=== PATIENT | female | born 1955 | race Caucasian/White ===

== ENCOUNTER 2022-03-06 19:52 | Emergency (ER) | payer BC, SELFPAY ==
--- NOTE | 2022-03-06 19:54 | ED.HEATRA ---
HPI - Head Injury General Stated complaint: lac of head Time Seen by Provider: 03/06/22 20:02 Source: patient Mode of arrival: ambulatory Limitations: no limitations History of Present Illness HPI Narrative: 66-year-old female presents with concern for laceration to the back of her head. She reports just prior to arrival she fell and hit the back of her head on the stair rail. She denies any loss of consciousness. She denies headache, vomiting. She denies weakness in any extremity, vision changes. Complaint: head injury Related Data Home Medications Medication Instructions Recorded Confirmed rosuvastatin 10 mg tablet mg 03/06/22 Allergies Allergy/AdvReac Type Severity Reaction Status Date / Time Sulfa (Sulfonamide Allergy Unknown Unknown Verified 03/06/22 19:59 Antibiotics) Review of Systems Review of Systems: CONSTITUTIONAL: Denies malaise, chills, sweats, or fever. EYES: Denies visual changes CARDIOVASCULAR: Denies chest pain, palpitations, or edema. RESPIRATORY: Denies cough or dyspnea. GASTROINTESTINAL: Denies nausea, vomiting SKIN: Reports laceration to the back of her head MUSCULOSKELETAL: Denies back pain, joint pain, or myalgia. NEUROLOGIC: Denies numbness, weakness, or headache. Denies loss of consciousness All systems reviewed & are unremarkable except as noted in HPI and below PMFSH Comments At time of signature, agree with nursing past medical, surgical, social and family history. There is no relevant family history pertinent to the presenting complaint Exam Narrative: GENERAL: Well-appearing, well-nourished, and in no acute distress. HEAD: Normocephalic, atraumatic. EYES: PERRLA, sclera clear, and EOMI. No nystagmus. ENT: Nares clear, no rhinorrhea or epistaxis. Mucous membranes moist. NECK: Supple. CHEST: No respiratory distress. Speaks in full sentences. HEART: Regular rate and rhythm. No murmur heard. SKIN: Warm, dry. 1 cm laceration into the subcutaneous tissue noted to the posterior scalp without surrounding erythema,, induration. NEURO: Alert and oriented x3. No focal deficits. Cranial nerves II through XII grossly intact PSYCH: Normal mood and affect Course Course Emergency Course: Patient is aware of diagnosis, understands and agrees to treatment plan. Anticipatory guidance given. Patient agrees to follow-up as directed and is aware of reasons to seek care at the emergency department. Portions of this record may have been created with voice recognition software Level of Care: Express Care Visit Vital Signs Vital signs: Reviewed. Procedures Laceration Laceration 1: Date: 03/06/22 Time: 20:04 Site: scalp Size (cm): 1 Description: linear Depth: simple, single layer ====== Skin Level ====== Skin layer closed with: clemente Number of sutures: 1 ====== Subcutaneous Layer ====== ====== Muscle Layer ====== ====== Tendon Layer ====== MDM - Head Injury MDM Narrative Medical decision making narrative: CCHR score: Signs of open or depressed skull fracture: No Beltrán sign/raccoon eyes: No 2 or more episodes of vomiting: No Age 65 years +: Yes Amnesia for events occurring 30 minutes prior to trauma: No Dangerous mechanism of injury (pedestrian struck by motor vehicle, occupant ejected from motor vehicle, fall from >3 feet or >5 stairs): No Exam findings show no acute concerns; patient is alert and oriented with normal neurological exam. CHR score cannot rule out head injury due to patient's age. This was discussed with patient, need for possible CT scan was discussed with patient, patient offered transfer to emergency department for further evaluation. Patient refuses transfer to emergency department. Patient given reasons to go to the emergency department after symptoms change or worsen. Wound explored for foreign body and copious irrigation provided with no evidence of FB. Discussed the p
[2022-03-06 19:58] VITALS: BP 176/80; PULSE 93; RESP 16; TEMP 36.8; O2SAT 98
== END 2022-03-06 20:19 | disposition home or self-care (01) ==
PROVIDERS: Emergency Provider Nurse Practitioner
DX: S01.01XA Laceration without foreign body of scalp, initial encounter (principal); W19.XXXA Unspecified fall, initial encounter; E78.00 Pure hypercholesterolemia, unspecified
CPT/HCPCS: 12001; 99212; G0463

== ENCOUNTER 2022-03-16 17:12 | Emergency (ER) | payer BC, SELFPAY ==
[2022-03-16 17:20] VITALS: BP 154/73; PULSE 69; RESP 16; TEMP 36.7; O2SAT 99
--- NOTE | 2022-03-16 17:29 | ED.SKABFB ---
HPI - Skin/Abscess/Foreign Bdy General Chief complaint: Skin/Abscess/Foreign Body Stated complaint: staple removal Time Seen by Provider: 03/16/22 17:29 Source: patient Mode of arrival: ambulatory Limitations: no limitations History of Present Illness HPI narrative: To have 1 staple removed from the back of her head. Staple was placed 10 days ago at this site. She denies complications. Related Data Home Medications Medication Instructions Recorded Confirmed rosuvastatin 10 mg tablet 10 mg PO DAILY 03/06/22 03/16/22 Allergies Allergy/AdvReac Type Severity Reaction Status Date / Time Sulfa (Sulfonamide Allergy Unknown Unknown Verified 03/16/22 17:22 Antibiotics) Review of Systems Review of Systems: CONSTITUTIONAL: Denies fever, chills EYES: Denies visual changes CARDIOVASCULAR: Denies chest pain GASTROINTESTINAL: Denies abdominal pain, nausea, vomiting, or diarrhea. SKIN: Reports staple in scalp MUSCULOSKELETAL: Denies back pain, joint pain, or myalgia. NEUROLOGIC: Denies headache, numbness, tingling, or weakness. PMFSH Comments At time of signature, I have reviewed and agree with nursing past medical, surgical, social and family history unless otherwise noted. Please see nursing chart for further information. There is no relevant family history pertinent to the presenting complaint Exam Narrative: GENERAL: Well-appearing HEAD: Normocephalic, one staple to mid posterior scalp, no surrounding redness or purulent drainage EYES: conjunctivae clear, and EOMI. RESP: even, unlabored SKIN: Warm, dry. NEURO: Alert and oriented x3. Course Course Emergency Course: Patient is aware of diagnosis, understands and agrees to treatment plan. Anticipatory guidance given. Patient agrees to follow-up as directed and is aware of reasons to seek care at the emergency department. Portions of this record may have been created with voice recognition software Level of Care: Express Care Visit Vital Signs Vital signs: Vital Signs Temperature 98.1 F 03/16/22 17:20 Pulse Rate 69 03/16/22 17:20 Respiratory Rate 16 03/16/22 17:20 Blood Pressure 154/73 H 03/16/22 17:20 Pulse Oximetry 99 03/16/22 17:20 Oxygen Delivery Room Air 03/16/22 17:20 Temperature 98.1 F 03/16/22 17:20 Pulse Rate 69 03/16/22 17:20 Respiratory Rate 16 03/16/22 17:20 Blood Pressure 154/73 H 03/16/22 17:20 Pulse Oximetry 99 03/16/22 17:20 Oxygen Delivery Room Air 03/16/22 17:20 Reviewed Procedures Other Procedure Procedure 1: Other Procedure: one staple removed from scalp without difficulty, no signs of infection MDM - Skin/Abscess/Foreign Bdy MDM Narrative Medical decision making narrative: Instructed patient to go to nearest ER immediately for any concerning symptoms. Differential Diagnosis Differential diagnosis: Likely other (staple removal) Discharge Plan Discharge Clinical Impression: Encounter for staple removal Patient Disposition: Home, Self-Care Condition: Stable Additional Instructions: Keep wound clean and dry Follow up with your primary care provider as needed in 1-2 weeks Go to the ER for worsening symptoms or concerns Prescriptions: No Action rosuvastatin 10 mg tablet 10 mg PO DAILY Follow-up/Referrals: UNKNOWN,DOCTOR [Primary Care Provider] - Time of Disposition: 17:34
== END 2022-03-16 17:39 | disposition home or self-care (01) ==
PROVIDERS: Emergency Provider Nurse Practitioner Family
DX: S01.01XD Laceration without foreign body of scalp, subsequent encounter (principal); X58.XXXD Exposure to other specified factors, subsequent encounter; E78.00 Pure hypercholesterolemia, unspecified
CPT/HCPCS: 99211; G0463

== ENCOUNTER 2025-01-12 19:09 | Emergency (ER) | payer BC, SELFPAY ==
--- NOTE | 2025-01-12 19:14 | ED_ITS ---
HPI - Wound/Laceration General Chief Complaint: Wound/Laceration Stated Complaint: fall/head gash Time Seen by Provider: 01/12/25 19:59 Source: patient, RN notes reviewed and old records reviewed Mode of arrival: ambulatory Limitations: no limitations History of Present Illness HPI narrative: 69-year-old female presents to the [facility] with a laceration to the right side of her head. Patient states that she tripped on a loose board and banged her head a railing. 2 cm lack to the right scalp area Bleeding is controlled Unknown last Tdap Related Data Home Medications ?Medication ?Instructions ?Recorded ?Confirmed ?Last Taken ?Type rosuvastatin 10 mg tablet 10 mg PO DAILY 03/06/2202/23 Unknown History Allergies Allergy/AdvReac Type Severity Reaction Status Date / Time Sulfa (Sulfonamide Allergy Unknown Unknown Verified 01/12/25 19:49 Antibiotics) Review of Systems 2 Review of Systems: All systems reviewed & are unremarkable except as noted in HPI and below Constitutional: Constitutional: Reports no additional constitutional complaints ENT: Reports system reviewed and no additional complaints, except as documented Cardiovascular: Cardiovascular: Reports no additional cardiovascular complaints, Denies chest pain and Denies dyspnea Respiratory: Respiratory: Reports no additional respiratory complaints, Denies chest congestion, Denies cough and Denies dyspnea Musculoskeletal: Musculoskeletal: Reports no additional musculoskeletal complaints Integumentary/Breasts: Skin/Breast: Reports as per HPI PMFSH Comments At the time of my signature, I reviewed and agree with the nursing past medical, surgical, social, and family history. There is no relevant family history pertinent to the patient complaint. Exam 2 Const: General: cooperative, healthy appearing, comfortable, no acute distress, well developed, alert and well nourished Nutritional Appearance: w ell nourished Orientation/consciousness: patient oriented x3 Limitations: no limitations HENMT: Head: normal to inspection Head images: 1. 2.5cm Ears: hearing grossly normal bilaterally and external ears normal Mouth: Yes Normal oral and palatal mucosa present, Yes lip normal, Yes tongue normal and Yes moist mucous membranes Eyes: General: appearance normal, both eyes and all related structures A lignment and Position: alignment normal Neck: Neck: normal visual inspection, full ROM, no lymphadenopathy and no meningeal signs Chest: Chest palpation & inspection: normal inspection of the chest Resp: Effort & Inspection: normal respiratory effort and able to speak in complete sentences Cardio: Rate: regular rate Skin: General skin exam: normal color and no rashes or lesions noted W ounds: wounds noted Other: Laceration right scalp Neuro: General: patient oriented x3, gait normal, moves all extremities and no meningeal signs Cognition (Neuro): normal cognition Speech: normal speech Gait exam (Neuro): Normal gait present Extrem: General: normal to inspection, full ROM, capillary refill normal and normal gait Psych: Appearance: grossly normal and well kempt Mental Status: mental status grossly normal Speech and movement: Normal speech and movement present and Clear speech present Affect: normal affect Attitude: cooperative Course Course Level of Care: Express Care Visit Vital Signs Vital signs: Vital Signs Temperature 97.9 F 01/12/25 19:28 Pulse Rate 88 01/12/25 19:28 Respiratory Rate 18 01/12/25 19:28 Blood Pressure 131/73 01/12/25 19:28 Pulse Oximetry 98 01/12/25 19:28 Oxygen Delivery Room Air 01/12/25 19:28 Temperature 97.9 F 01/12/25 19:28 Pulse Rate 88 01/12/25 19:28 Respiratory Rate 18 01/12/25 19:28 Blood Pressure 131/73 01/12/25 19:28 Pulse Oximetry 98 01/12/25 19:28 Oxygen Delivery Room Air 01/12/25 19:28 Reviewed Procedures Laceration Laceration 1: Date: 01/12/25 Time: 20:00 Site: scalp Side (If applicable): right Size (cm): 2.5 Description: linear Depth: simple, single layer Pre-repair: wound explored and irrigated (100) ====== Skin Level ====== Skin layer closed with: clemente (4) ====== Subcutaneous Layer ====== ====== Muscle Layer ====== ====== Tendon Layer ====== Dressing: Area cleaned with wound cleanser, irrigated with saline. No bleeding noted, 4 clemente placed without issue MDM - Wound/Laceration MDM Narrative Medical decision making narrative: Patient sitting in exam room. Patient is nontoxic, vitals are stable. Patient presents with a laceration to her head, states that she headed on a board were railing on her son's porch. Denies any loss of consciousness. Not on blood thinners. Denies any blurry vision or change in vision. Denies any vomiting. Denies any numbness or tingling in extremities. Remembers the entire incident, no amnesia, no suspicion of a skull fracture Patient is 69 years old, discussed going to the ER which she is declining at this time, just wants it repaired, denies any other signs or symptoms. Patient states that if any symptoms occur that she would go Discharge instructions reviewed with patient, as well as provided in writing per nursing staff. The instructions also include specific and strict return/GO TO THE ER as well as f/u information. All questions have been answered, and the patient deny any further questions with discharge and discharge plan. Some parts of this dictation were generated by voice recognition software and may contain typographical and/or grammatical inaccuracies. Differential Diagnosis Differential diagnosis: Likely laceration, abrasion and avulsion of skin Critical Care Time Critical Care Time Critical Care Time: No Discharge Plan Discharge Clinical Impression: Laceration of scalp, Vaccine for diphtheria-tetanus Patient Disposition: Home Condition: Stable Instructions: Antibiotic Form, Head Laceration (ED) Additional Instructions: Starting tomorrow wash area daily, pat dry pain Take Tylenol as needed for pain Follow-up with primary care provider in about a week to have clemente removed For new or worsening symptoms such as blurry vision, change in vision, vomiting, headache or worsening pain please proceed to the nearest emergency room for further evaluation Patient Language: Telugu Prescriptions: No Action rosuvastatin 10 mg tablet 10 mg PO DAILY Follow-up/Referrals: UNKNOWN,DOCTOR [Primary Care Provider] Time of Disposition: 20:10
--- OUTSIDE RECORDS SUMMARY | 2025-01-12 19:15 | XMS_ITS | Clinical Summary ---
Author Organization [address] Address [facility] [place] [address] Care Team Providers Care Vacuum Tester Cans Name Role Phone Anibal Santos MD Primary Care Provider Allergies No known active allergies Medications aspirin 81 mg enteric coated tablet daily Active cetirizine (ZyrTEC) 10 mg tablet daily Active niacin, inositol niacinate, 400 mg niacin (500 mg) capsule Take by mouth Acti ve multivit with minerals/lutein (MULTIVITAMIN 50 PLUS ORAL) Take by mouth Activ e tirzepatide, weight loss, (Zepbound) 2.5 mg/0.5 mL pen injectorIndicati ons:Wt Loss Mgmt, Pt with BMI 27-29 & Wt-Related Comorbidity Inject 0.5 mL (2.5 mg total) under the skin every 7 days 2 mL 5 Active triamcinolone (KENALOG) 0.1 % cream Apply to affected area 1-2 times daily as needed. 28.4 g 1 5 06/08/19 26 Active phentermine 37.5 mg capsule Take 1 capsule (37.5 mg total) by mouth every morning 60 capsule 5 01/17/20 25 Active rosuvastatin (CRESTOR) 20 mg tablet Take 1 tablet by mouth once daily 90 tablet 3 5 Active Active Problems Problem Noted Date Diagnosed Date Obesity (BMI 30-39.9) 10/18/2024 Assessment & Plan (10/18/2024 1:01 PM CDT): Congratulated on weight loss thus far. Refill phentermine. She can look into obtaining tirzepatide through the [employer] arizmendi program. Elevated cholesterol 07/15/2021 Assessment & Plan (10/18/2024 1:00 PM CDT): Ok to reduce rosuvastatin dose to 10 mg daily or 20 mg QoD. Assessment & Plan (07/27/2023 12:25 PM NDT INSPECTOR): Check lipids. Continue rosuvastatin. Assessment & Plan (07/28/2022 9:21 AM NDT INSPECTOR): At goal on current therapy. Assessment & Plan (07/15/2021 1:07 PM NDT INSPECTOR): LDL reasonable. Will continue current dose of rosuvastatin. Encounter for preventive health examination 06/26 Assessment & Plan (10/18/2024 1:01 PM CDT): Overall good health. Colonoscopy due in 2028. Breast imaging scheduled for May 2025. DEXA scan is up to date. I recommended Shingrix and Tdap vaccines. Assessment & Plan (07/27/2023 12:26 PM NDT INSPECTOR): Overall good health. Diagnostic MMG scheduled in November 2023. Colonoscopy due in 2028. DEXA was normal in last few years. Gave Tdap today. Assessment & Plan (07/28/2022 9:21 AM NDT INSPECTOR): Overall excellent health. Cancer screening and vaccinations are UTD. Encouraged diet, exercise, weight loss. Assessment & Plan (07/15/2021 1:06 PM NDT INSPECTOR): Excellent health. I have ordered a colonoscopy. MMG UTD. Vaccinations UTD. Well woman exam with routine gynecological exam 12/17/2018 Pruritus 2014 Difficulty concentrating 01/07/2013 Attention deficit disorder (ADD) without hyperac tivity 01/07/2013 Memory loss 01/09/2012 Neoplasm of connective and soft tissue 2 Sebaceous cyst 12/11/2011 Asteatosis cutis 12/11/2011 Onychomycosis 12/11/2011 Vitamin D deficiency 11/04/2011 Encounters Date Type Department Care Team Description 12/01/2024 Telephone [facility] [address] [place] [address] [place] [phone] Anibal Santos MD PA PHENTERMINE 37.5MG - RIVERA: [id number] 11/07/2024 [facility] [address] [place] [address] [place] [phone] Anibal Santos MD Zepbound PA 10/18/2024 10:15 AM CDT Office Visit [facility] [address] [place] [phone] Anibal Santos MD Encounter for preventive health examination (Primary Dx); Obesity (BMI 30-39.9); Elevated cholesterol from Last 3 Months Immunizations Immunization Administration Dates Next Due Pfizer SARS-CoV-2 Monovalent Vaccination (12+ Yrs) RICHTER-READY TO USE 12/10/2021 Pneumococcal Conjugate PCV 13 04/16/2018 Surgical History Surgery Date Site/Laterality Comments PILONIDAL CYST RESECTION Pilonidal Cyst Resection - head (Added by Conv) BREAST BIOPSY 07/13/2023 Right Medical History Medical History Date Comments Fall A Fall - month a go (Added by Conv) Encounter for screening for lipoid disorders Encounter for screening for lipoid disorders - (Added by TW Conv) Encounter for screening for other suspected endocrine disorder Screening for endocrine/metabolic/immunity disorders - (Added by TW Conv) Encounter for screening for diabetes mellitus Encounter for screening for diabetes mellitus - (Added by TW Conv) Encounter for screening for other suspected endocrine disorder Screening for thyroid dis order - (Added by TW Conv) Intra-abdominal and pelvic s welling, mass and lump, unspecified site Mass of abdomen - (Added by TW Conv) Family History Medical History Relation Name Comments Heart disease Father Heart Disease - (Added by TW Conv) Breast cancer Sister Breast Cancer - (Added by TW Conv) Relation Name Status Comments Father Sister Social History Tobacco Use Types Packs/Day Years Used Date Smoking Tobacco: Never Smokeless Tobacco: Never Tobacco Cessation:Counseling Given: Not Answered Alcohol Use Standard Drinks/Week Comments Yes 1 (1 standard drink = 0.6 oz pur e alcohol) Humiliation, Afraid, Rape, and Kick questionnair e Answer Date Recorded Fear of Current or Ex-Partner No Emotionally Abused No 12/17/2018 Physically Abused No 12/17/2018 Sexually Abused No 12/17/2018 Social Connection and Isolation Panel Answer Date Recorded Frequency of Communication with Friends and Fami ly Not on file 12/17/2018 Frequency of Social Gatherings with Friends and Family Not on file 12/17/2018 Attends Scientology Services Not on file 12/17 Active Member of Clubs or Organizations Not on f ile 12/17/2018 Attends Club or Organization Meetings Not on genoveva e 12/17/2018 Marital Status 12/17/2018 AUDIT-C Answer Date Recorded Q1: How often do you have a drink containing alc ohol? 2-4 times a month 11/28/2021 Q2: How many drinks containi ng alcohol do you have on a typical day when you are drinking? 1 or 2 11/28/2021 Q3: How often do you have si x or more drinks on one occasion? Never 11/28/2021 PHQ-2 Answer Date Recorded PHQ-2 Total Score (If total score is 3 or more points, staff should administer the PHQ-9) 0 07/15/2021 Exercise Vital Sign Answer Date Recorde d Days of Exercise per Week 0 days 2018 Minutes of Exercise per Session 0 min 12/17/2018 Comments No Sex and Gender Information Value Date Recorded Sex Assigned at Not on file Legal Sex Female 1:19 AM NDT INSPECTOR Gender Identity Not on file Sexual Orientation Not on file Obstetrics History Para Term AB IAB SAB Ectopic Multiple Livin g Live Births 2 2 2 2 2 Date Outcome GA Total Labor Labor/2nd/3rd Weight Sex Type Anes PTL Shea A1 A5 Name Clin 1982 Term M CS-LT ranv Living Complications:None 1986 Term F CS-LT ranv Living Complications:None Last Filed Vital Signs Vital Sign Reading Time Taken Comments Blood Pressure 124/75 10/18/2024 10:07 AM CDT Pulse 87 10/18/2024 10:07 AM CDT Temperature 37.3 C (99.1 F) 11/28/2021 4:26 PM CDT Respiratory Rate 22 11/28/2021 4:46 PM CDT Oxygen Saturation 98% 08/31/2024 3:03 PM CDT Inhaled Oxygen Concentration - - Weight 74.6 kg (164 lb 8 oz) 10/18/2024 10:07 AM CDT Height 160 cm (5' 3) 10/18/2024 10:07 AM CDT Body Mass Index 29.14 10/18/2024 10:07 AM CDT Plan of Treatment Health Maintenance Due Date Last Done Comments Hepatitis C Screening 1955 DTaP/Tdap/Td Vaccine (1 - Tdap) 1964 Hepatitis B Screening 1971 Zoster Vaccine (1 of 2) 2003 Pneumococcal vaccine 65+ (2 of 2 - PCV20 or PCV21) 04/16/2019 04/16/2018 Osteoporosis Screening-Bone Density Scan 12/17/2020 12/17/2018, 03/28/2015 Depression Screening 07/15/2022 07/15/2021 Fall Risk Assessment 11/28/2022 11/28/2021 Covid-19 Vaccine (4 - 2023-2 5 season) 2024 12/10/2021, 06/26/2020, 06/05/2020 Influenza Vaccine (#1) 2025 , 02/28/2020, 03/08/2019, Additional history exists Breast Cancer Screening-Mammogram 06/13/2025 06/13/2024, 06/08/2023, 05/21/2022, Additional history exists Well Visit 65+ 10/18/2025 10/18/2024, 03/0 08/2023, 07/28/2022, Additional history exists Colon Cancer Screening-Colonoscopy 11/29/2031 11/28/2021, 04/28/2016, 04/28/2016 Colon Cancer Screening-CT Colonography Discontinued 11/28/2021, 04/28/2016, 04/28/2016 Colon Cancer Screening-DNA Stool Discontinued 11/28/2021, 04/28/2016, 04/28/2016 Colon Cancer Screening-FIT Discontinued 11/28, 04/28/2016, 04/28/2016 Colon Cancer Screening-Sigmoidoscopy Discontinued 11/28/2021, 04/28/2016, 04/28/2016 Medical Devices Implanted Type Area Car Inspector Device Identifier Shelf Expiration Date Model / Serial / Lot Bard Peripheral Vascular Ultraclip Bard 17ga 10cm 2 Trigger Permanent Ultrasound [id number] - [id number] Implanted:Qty: 1 on 07/13/2023 at [facility] [employer] Peripheral Vascular [id number] / / Procedures Procedure Name Priority Date/Time Associated Diagnosis Comments DIAGNOSTIC MAMMOGRAM BILATERAL W CHASE Schedule Routine, Read Routine (OP Routine) 06/13/2024 9:55 AM NDT INSPECTOR Abnormal mammogram of right breast COLONOSCOPY 11/28/2021 3:53 PM CDT DEXA AXIAL SKELETON BONE DENSITY 1 OR MORE SITES Schedule Routine, Read Routine (OP Routine) 12/17/2018 11:37 AM CDT Health care maintenance from Last 3 Months or Most Recently Relevant to Health Maintenance Results * Diagnostic Mammogram Bilateral W Chase (06/13/2024 9:55 AM NDT INSPECTOR) Anatomical Region Laterality Modality Breast Bilateral Mammography 06/13/2024 1:11 PM NDT INSPECTOR Impressions 06/13/2024 1:11 PM NDT INSPECTOR 1. No interval change in right breast mass, which remains probably benign. Continued follow-up is recommended to ensure long-term stability. 2. No evidence of malignancy in left breast. OVERALL FINAL ASSESSMENT: BI-RADS Category 3: Probably Benign. RECOMMENDATION: Recommend follow-up diagnostic breast imaging in 12 months with bilateral diagnostic mammogram and possible right breast ultrasound. Dr. Powell discussed the above findings and recommendations with the patient. Electronically signed by: Avril Powell M.D. Narrative 06/13/2024 1:11 PM NDT INSPECTOR EXAMINATION: BILATERAL DIGITAL DIAGNOSTIC MAMMOGRAM INCLUDING CAD AND BILATERAL DIGITAL BREAST TOMOSYNTHESIS; RIGHT BREAST SONOGRAM HISTORY: 69-year-old woman here for short interval follow-up of probably benign mass in the right breast. A separate mass was biopsied with benign results last year. COMPARISON: Multiple prior studies, most recently 12/21/2023 and dating back to 11/01/2019. TECHNIQUE: Full field digital mammographic views of BOTH breasts were performed, including computer aided detection (CAD) and BILATERAL digital breast tomosynthesis (DBT). Directed ultrasound evaluation of the RIGHT breast was performed. BREAST PARENCHYMAL COMPOSITION: The breasts are almost entirely fatty. MAMMOGRAM FINDINGS: There has been no interval change in the appearance of the mass in the upper outer quadrant of the right breast. There is no new suspicious mass, distortion, or calcification in either breast. SONOGRAM FINDINGS: Targeted ultrasound was performed in the right breast at 10:00 4 cm from the nipple, demonstrating an unchanged hypoechoic mass measuring 0.3 x 0.2 x 0.2 cm. Procedure Note Avril Powell MD - 06/13/2024 EXAMINATION: BILATERAL DIGITAL DIAGNOSTIC MAMMOGRAM INCLUDING CAD AND BILATERAL DIGITAL BREAST TOMOSYNTHESIS; RIGHT BREAST SONOGRAM HISTORY: 69-year-old woman here for short interval follow-up of probably benign mass in the right breast. A separate mass was biopsied with benign results last year. COMPARISON: Multiple prior studies, most recently 12/21/2023 and dating back to 11/01/2019. TECHNIQUE: Full field digital mammographic views of BOTH breasts were performed, including computer aided detection (CAD) and BILATERAL digital breast tomosynthesis (DBT). Directed ultrasound evaluation of the RIGHT breast was performed. BREAST PARENCHYMAL COMPOSITION: The breasts are almost entirely fatty. MAMMOGRAM FINDINGS: There has been no interval change in the appearance of the mass in the upper outer quadrant of the right breast. There is no new suspicious mass, distortion, or calcification in either breast. SONOGRAM FINDINGS: Targeted ultrasound was performed in the right breast at 10:00 4 cm from the nipple, demonstrating an unchanged hypoechoic mass measuring 0.3 x 0.2 x 0.2 cm. IMPRESSION: 1. No interval change in right breast mass, which remains probably benign. Continued follow-up is recommended to ensure long-term stability. 2. No evidence of malignancy in left breast. OVERALL FINAL ASSESSMENT: BI-RADS Category 3: Probably Benign. RECOMMENDATION: Recommend follow-up diagnostic breast imaging in 12 months with bilateral diagnostic mammogram and possible right breast ultrasound. Dr. Powell discussed the above findings and recommendations with the patient. Electronically signed by: Avril Powell M.D. us Anibal Santos MD IMG MAMMO PROCEDURES Fi nal Result * COLONOSCOPY (11/28/2021 3:53 PM CDT) Anatomical Region Laterality Modality Other Narrative Procedure Note Gaurang Wilson MD - 11/28/2021 3:53 PM CDT [facility] Patient Name: Patria Quevedo Procedure Date: 11/28/2021 3:53 PM Date of : 1955 Admit Type: Outpatient Age: 66 Gender: Female Attending MD: Gaurang Wilson M.D. Room: [facility] ENDOSCOPY ROOM 4 Note Status: Finalized Procedure: Colonoscopy Indications: High risk colon cancer surveillance: Personalhistory of colonic polyps, Last colonoscopy: April2016 Referring MD: Anibal Santos M.D. Providers: Gaurang Wilson M.D. Medicines: Monitored Anesthesia Care Complications: No immediate complications. Estimated Blood Loss: Estimated blood loss: none. Procedure: Pre-Anesthesia Assessment: - Immediately prior to administration ofmedications, the patient was re-assessed for adequacy to receive sedatives. - The risks and benefits of the procedure and the sedation options and risks were discussed with the patient. All questions were answered and informed consent was obtained. The benefits, risks and alternatives of theprocedure and sedation were discussed and informed consentwas obtained. All questions were answered. Please referto the signed informed consent document in the medical record. The scope was passed under direct vision.The [id number] endoscope was introduced through the anus and advanced to the cecum, identified by appendiceal orifice and ileocecal valve. The colonoscopy was performed without difficulty. The patient tolerated the procedure well. The qualityof the bowel preparation was evaluated using the BBPS ([place] Bowel Preparation Scale) with scores of:Right Colon = 3, Transverse Colon = 3 and Left Colon = 3 (entire mucosa seen well with no residual staining, small fragments of stool or opaque liquid). Thetotal BBPS score equals 9. The bowel preparation used was NuLytely via split dose instruction. The quality of the bowel preparation was adequate. Findings: The digital rectal exam was normal. A 3 mm polyp was found in the rectum. The polyp was sessile. Thepolyp was removed with a jumbo cold forceps. Resection and retrieval were complete. The exam was otherwise without abnormality. Impression: - One 3 mm polyp in the rectum, removed with ajumbo cold forceps. Resected and retrieved. - The examination was otherwise normal. Recommendation: - Await pathology results. - Repeat colonoscopy in 7 years for surveillance. Attending Participation: I personally performed the entire procedure. Electronically signed by Gaurang Wilson MD Gaurang Wilson M.D. 11/28/2021 4:21:49 PM . Number of Addenda: 0 Note Initiated On: 11/28/2021 3:53 PM Recognized by the [place] [employer] for promoting quality in endoscopy us Gaurang Wilson MD ENDOSCOPY PROCEDURES Final Re sult * Dexa Axial Skeleton Bone Density 1 or 2 Site (12/17/2018 11:37 AM CDT) Anatomical Region Laterality Modality Body N/A Radiographic Martha ging Narrative 12/17/2018 11:37 AM CDT Patient Name: Patria Quevedo Date of : 1955 Date of scan: 12/17/2018 Bone mineral density was performed on a [employer] Discovery Densitometer. Machine Cross-calibration and Precision studies have been performed with a least significant change of 0.024 g/cm at the spine, 0.020 g/cm at the total proximal femur, and 0.014g/cm at the forearm. HISTORY: This is a 63 y.o. postmenopausal female. Currently on treatment with vitamin D. History of tobacco use: Social History Tobacco Use Smoking Status Never Smoker INDICATIONS: Menopause status. FINDINGS: BONE MINERAL DENSITY OF THE LUMBAR SPINE Bone Mineral Density (BMD) of the lumbar spine was measured from L1-L4 and the average density was calculated to be 0.992 gm/cm. This corresponds to a T-score standard deviations from the mean of young adults of -0.5. There is no previous study available for comparison. BONE MINERAL DENSITY OF THE PROXIMAL FEMUR Bone Mineral Density (BMD) of the left hip total was found to be 0.983 gm/cm2. This corresponds to a T-score standard deviations from the mean of young adults of 0.3. Femoral neck is 0.735 gm/cm2 with a T-score of -1.0. There is no previous study available for comparison. SUMMARY: Bone mineral density is near the young adult normal mean with no increased risk for fracture. ADDITIONAL COMMENTS: If the patient has a history of a fragility fracture, a fracture that occurred with trauma equivalent to a fall from a standing position or less, then the diagnosis is osteoporosis. The risk of osteoporotic fracture increases approximately 2-fold for each 1.0 SD decrease in T-score. However, low bone density is not the only risk factor for fracture. Other factors include patient s age, previous osteoporotic fracture or prior fracture as an adult, loss of height of greater than 2 inches, corticosteroid use, risk of falling, risk of injury, and family history of osteoporosis. Not everyone with low bone mineral density has osteoporosis. Osteomalacia and other metabolic bone disorders should also be considered where indicated. Patients who have osteoporosis should be evaluated for specific diseases and conditions (secondary causes) that may cause or contribute to bone loss. Consider repeating this study in 1-2 years to assess the patient s response to treatment, if applicable. It is recommended that any follow up exam be performed on the same machine if possible for better accuracy. DEFINITIONS: Osteoporosis: BMD at or below -2.5 T-score Osteopenia (low bone mass): BMD between -1.0 and-2.5 T-score. The Bone Health Program adopts the following WHO definitions: Osteoporosis: BMD below -2.5 S.D. as compared to the BMD of young normal adults. Osteopenia or Low Bone Mass: BMD between -1.0 and -2.5 S.D. below the BMD of young normal adults. Normal Bone Density: BMD equal to or greater than -1.0 S.D. as compared to the BMD of young normal adults. References: 1) Alex, Annals of Internal Medicine 114(11): 919-923 (1990) 2) Dodie, Lancet 341 : 72-75 (1992) 3) Alexx, Journal Bone and Mineral Research 7(6): 633-8 (1991) 4) Giancarlo, Journal Bone and Mineral Research 8(10):1227-33 (1992) The history and data sections of the bone mineral density scan were prepared by Digna Juan) COURTNEY who is accredited by the International Society of Clinical Densitometry. The overall patient assessment and scan interpretation were performed by Devon Acharya M.D. who is certified by the International Society of Clinical Densitometry. [id number] Hermelinda Donald MD IM DXA PROCEDURES Madeline l Result from Last 3 Months or Most Recently Relevant to Health Maintenance Insurance [employer] MEDICARE MEDICARE [facility] MEDICARE [facility] [employer] [facility] FEDERAL MEDICARE Advance Directives For more information, please contact: [phone] * Full Code (Latest Code Status on File) Date Activated Date Inactivated Comments 11/28/2021 2:43 PM 11/28/2021 9:58 PM Care Teams Vacuum Tester Cans Relationship Specialty Start Date End Date Anibal Santos MD PCP - General 03/15/21
[2025-01-12 19:28] VITALS: BP 131/73; PULSE 88; RESP 18; TEMP 36.6; O2SAT 98
[2025-01-12] MEDS: TETANUS/DIPHTHERIA TOXOIDS ADSORB 0.5 ML SYRINGE (*BKC) IM (20:05)
== END 2025-01-12 20:12 | disposition home or self-care (01) ==
PROVIDERS: Emergency Provider Nurse Practitioner
DX: S01.01XA Laceration without foreign body of scalp, initial encounter (principal); W18.09XA Striking against other object with subsequent fall, initial encounter; Z23 Encounter for immunization; E78.00 Pure hypercholesterolemia, unspecified
CPT/HCPCS: 12001; 90471; 90714; 99212; G0463